=== PATIENT | female | born 1995 | race African-American/Black ===

== ENCOUNTER 2017-09-03 15:56 | Emergency (ER) | payer OTHER ==
[~2017-09-03] VITALS: Ht 167.6 cm; Wt 72.6 kg
[2017-09-03 16:00] VITALS: BP 153/90
[2017-09-03 17:37] LABS: Urine Blood 1+ /uL (Negative); Urine Specific Gravity 1.013 (1.001-1.035); Urine WBC 1 /hpf (0 - 5)
[2017-09-03 17:45] LABS: Urine Bacteria None Seen /hpf (None Seen)
== END 2017-09-03 19:04 | disposition left against medical advice (07) ==
LOC: ER 15:56
DX: R07.89 Other chest pain (principal)
CPT/HCPCS: 81001; 81025; 93005

== ENCOUNTER 2017-12-21 19:18 | Emergency (ER) | payer OTHER ==
[~2017-12-21] VITALS: Ht 167.6 cm; Wt 74.4 kg
[2017-12-21 21:17] LABS: Basophils # (auto) 0 uL; Basophils % (auto) 1.1 % (0.0-2.0); Eosinophils # (auto) 0.1 uL; Eosinophils % (auto) 1.8 % (0.0-7.0); Lymphocytes # (auto) 1.7 uL; Mean Corpuscular Hemoglobin 28.5 pg (28.0-32.0); Mean Corpuscular Hgb Conc. 34.3 g/dL (32.0-36.0); Mean Corpuscular Volume 83.2 fL (80.0-100.0); Monocytes # (auto) 0.4 uL; Monocytes % (auto) 8.4 % (0.0-12.0); Neutrophils # (auto) 2.2 uL; Neutrophils % (auto) 50.7 % (37.0-80.0); Nucleated Red Blood Cells % 0.2 %; Platelet Count (auto) 332 10^3/uL (140-450); Red Blood Cells 4.57 10^6/uL (4.0-5.20); Red Cell Distribution Width 15.4 % (11.8-14.3); White Blood Cell 4.4 10^3/uL (4.4-10.8)
[2017-12-21 21:39] LABS: Albumin 3.8 g/dL (3.4-5.0); BUN/Creatinine Ratio 16.7; Calcium 9.1 mg/dL (8.5-10.1)
[2017-12-21 21:42] LABS: Bilirubin, Total 0.3 mg/dL (0.2-1.0); Total Protein 8.1 g/dL (6.4-8.2)
[2017-12-22] MEDS ORDERED: IBUPROFEN 600 MG TAB PO ONE (00:30)
[2017-12-22 01:15] VITALS: BP 122/73
[2017-12-22] MEDS ORDERED: HYDROcodone-ACET 7.5/325MG TAB PO ONE (04:15)
== END 2017-12-22 04:43 | disposition home or self-care (01) ==
LOC: ER 19:18
DX: G43.909 Migraine, unspecified, not intractable, without status migrainosus (principal)
CPT/HCPCS: 36415; 70450; 80053; 81025; 85025